=== PATIENT | male | born 1990 | race African-American/Black ===

== ENCOUNTER 2017-03-14 18:10 | Emergency (ER) | payer BC, MEDICAID ==
[~2017-03-14] VITALS: Ht 180.3 cm; Wt 94.0 kg
[~2017-03-14 18:10] MED LIST: AMOX500C PO
[2017-03-14 18:12] VITALS: BP 146/78; PULSE 90; RESP 15; TEMP 98.2; O2SAT 99
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
== END 2017-03-14 18:53 | disposition home or self-care (01) ==
LOC: NEPK 18:10
DX: Z48.02 Encounter for removal of sutures (principal)
CPT/HCPCS: 99281